=== PATIENT | female | born 1940 | race Caucasian/White ===

== ENCOUNTER 2018-07-24 15:22 | Emergency (ER) | payer OTHER ==
--- OUTSIDE RECORDS SUMMARY | 2018-07-24 15:25 | XMS REPORT | Clinical Summary ---
:1940 Author Organization [facility] Address [address] [place] [address] Care Team Providers Name Role Phone Hu Hansen MD Primary Care Provider Allergies Active Allergy Reactions Severity Noted Date Comments Adhesive Tape-Silicones Rash High 09/21/2016 Bacitracin Zinc-Polymyxin B Itching Medium 09/21/2016 Tetracyclines Medications Medication Sig Dispensed Refills Start End Date Status Date traMADol (ULTRAM) 50 mg Take 1 mg by 0 Active tablet mouth 2 7 (two) times a day. escitalopram (LEXAPRO) Take 10 mg 0 Active 10 MG tablet by mouth 6 daily. aspirin (ECOTRIN) 81 MG Take 81 mg 0 Active enteric coated tablet by mouth daily. cholecalciferol, vitamin Take 2,000 0 Active D3, (VITAMIN D3) 2,000 Units by unit capsule capsule mouth daily. zolpidem (AMBIEN) 10 mg Take 10 mg 0 Active tablet by mouth nightly as needed for sleep. nitroglycerin Place 1 100 tablet 3 Active (NITROSTAT) 0.4 MG SL tablet (0.4 7 tablet mg total) under the tongue every 5 (five) minutes as needed for chest pain. hydroCHLOROthiazide TAKE ONE 90 tablet 2 Active (HYDRODIURIL) 25 MG TABLET BY 8 tablet MOUTH DAILY ezetimibe (ZETIA) 10 mg TAKE ONE 90 tablet 2 Active tablet TABLET BY 8 MOUTH DAILY ezetimibe (ZETIA) 10 mg Take 1 90 tablet 3 Active tablet tablet (10 8 mg total) by mouth daily. hydroCHLOROthiazide Take 1 90 tablet 3 Active (HYDRODIURIL) 25 MG tablet (25 8 tablet mg total) by mouth daily. amlodipine-benazepril TAKE ONE 90 capsule 2 Active (LOTREL) 10-40 mg per CAPSULE BY 8 capsuleIndications: MOUTH DAILY Essential hypertension fluvastatin (LESCOL) 20 TAKE ONE 90 capsule 5 Active MG capsule CAPSULE BY 8 MOUTH AT BEDTIME ezetimibe (ZETIA) 10 mg Take 1 90 tablet 3 08/14/19 Discontinued tablet tablet (10 7 18 mg total) by mouth daily. hydroCHLOROthiazide Take 1 90 tablet 3 08/14/19 Discontinued (HYDRODIURIL) 25 MG tablet (25 7 18 tablet mg total) by mouth daily. fluvastatin (LESCOL) 20 Take 1 90 capsule 3 08/16/19 MG capsuleIndications: capsule (20 7 18 Hyperlipidemia, mg total) by unspecified mouth hyperlipidemia type nightly. clopidogrel (PLAVIX) 75 Take 1 90 tablet 3 10/21/19 mg tablet tablet (75 7 18 mg total) by mouth daily. amlodipine-benazepril Take 1 90 capsule 3 03/26/20 Discontinued (LOTREL) 10-40 mg per capsule by 7 18 capsuleIndications: mouth daily. Essential hypertension fluvastatin (LESCOL) 20 Take 1 30 capsule 6 04/02/20 Discontinued MG capsule capsule (20 8 18 mg total) by mouth nightly. Active Problems Problem Noted Date CAD in [place] artery 11/22/2016 Stented coronary artery 11/22/2016 CAD (coronary artery disease) 09/21/2016 SOB (shortness of breath) 09/15/2016 Coronary artery disease involving [place] coronary artery of [place] heart 09/15 with angina pectoris Coronary artery disease involving [place] heart without angina pectoris 2016 Hyperlipidemia 08/16/2016 Encounters Date Type Specialty Care Team Description 04/02/2018 Refill Cardiology Lc Silvestre MD Med Refill 03/26/2018 Refill Cardiology Lc Silvestre MD Med Refill 11/21/2017 Office Visit Cardiology Lc Silvestre MD CAD in [place] artery (Primary Dx); Stented coronary artery 10/23/2017 Refill Cardiology Fely Blackwell MA Med Refill 08/14/2017 Refill Cardiology Lc Silvestre MD Med Refill 08/14/2017 Refill Cardiology Lc Silvestre MD Med Refill after 07/23/2017 Family History Medical History Relation Name Comments Heart attack Brother Heart disease Father Hyperlipidemia Father Hypertension Father Heart disease Mother Hyperlipidemia Mother Hypertension Mother Relation Name Status Comments Brother Father Mother Social History Tobacco Use Types Packs/Day Years Used Date Never Smoker Smokeless Tobacco: Never Used Tobacco Cessation: Counseling Given: No Alcohol Use Drinks/Week oz/Week Comments No Sex Assigned at Date Recorded Not on file Job Start Date Occupation Industry Not on file Not on file Not on file Travel History Travel Start Travel End No recent travel history available. Last Filed Vital Signs Vital Sign Reading Time Taken Blood Pressure 130/60 11/21/2017 2:19 PM CDT Pulse 63 11/21/2017 2:19 PM CDT Temperature - - Respiratory Rate - - Oxygen Saturation - - Inhaled Oxygen Concentration - - Weight 82.1 kg (181 lb) 11/21/2017 2:19 PM CDT Height 162.6 cm (5' 4") 11/21/2017 2:19 PM CDT Body Mass Index 31.07 11/21/2017 2:19 PM CDT Plan of Treatment Date Type Specialty Care Team Description 11/20/2018 Office Visit Cardiology Lc Silvestre MD [address] [place] [address] Health Maintenance Due Date Last Done Comments SHINGLES VACCINES (1 of 2) 1990 PNEUMOCOCCAL POLYSACCHARIDE VACCINE AGE 65 AND OVER 2005 PNEUMOCOCCAL-13 2005 INFLUENZA VACCINE 02/28/2018 Implants Implanted Type Area Kit Planner Device Shelf Model / Identifier Expiration Serial / Date Lot Device Vasclr Clsr Vasoactive Intstnl Peptd 8fr Angio-Seal - [id number] Cardiovascular N/A: 08/30/2017 [id number] / Implanted: 10/19/2016 (Quantity not on file) Implants N/A / [id number] Stent Crnry Xnce Alpn Evrlms Eltng Sys 3.00mm X 18mm Otw - [id number] Coronary Stents N/A: BOB VASCULAR 10/31/2018 [id number] / Implanted: 09/21/2016 (Quantity not on file) N/A DEVICES / [id number] Stent Catheter Synergy (Otw) 3.50mm X 24mm - [id number] Coronary Stents N/A: [facility] [id number] / Implanted: 10/19/2016 (Quantity not on file) N/A INTERVENTIONAL / CARDIOLOGY Procedures Procedure Name Priority Date/Time Associated Comments Diagnosis COPY RECEIVED FROM: Routine 11/27/2017 8:28 Results for this AM CDT procedure are in the results section. NON HDL CHOLESTEROL Routine 11/27/2017 8:28 Results for this ([facility]) AM CDT procedure are in the results section. CHOL/HDLC RATIO Routine 11/27/2017 8:28 Results for this ([facility]LEX [facility]) AM CDT procedure are in the results section. LDL-CHOLESTEROL Routine 11/27/2017 8:28 Results for this ([facility]LEX [facility]) AM CDT procedure are in the results section. TRIGLYCERIDES Routine 11/27/2017 8:28 Results for this AM CDT procedure are in the results section. HDL CHOLESTEROL Routine 11/27/2017 8:28 Results for this AM CDT procedure are in the results section. CHOLESTEROL Routine 11/27/2017 8:28 Results for this AM CDT procedure are in the results section. COPY(IES) SENT TO: Routine 11/27/2017 8:28 Results for this AM CDT procedure are in the results section. LIPID PANEL Routine 11/27/2017 8:28 CAD in [place] Results for this AM CDT artery procedure are in the results section. after 07/23/2017 Results NON HDL CHOLESTEROL ([facility]) (11/27/2017 8:28 AM CDT) Non-HDL cholesterol 115 <130 mg/dL (calc) [facility] Comment: [place] For patients with diabetes plus 1 major ASCVD risk factor, treating to a non-HDL-C goal of <100 mg/dL (LDL-C of <70 mg/dL) is considered a therapeutic option. Narrative Performed At FASTING:YES [facility] FASTING: YES Resulting Agency Comment Performing Organization Information: Site ID: [id number] Name: [facility] Address: [address] [place] [phone] Director: Larissa Mello Performing Organization Address City/State/Zipcode Phone Number [employer] [address] [address] CHOL/HDLC RATIO ([facility]LEX [facility]) (11/27/2017 8:28 AM CDT) Cholesterol/HDL ratio 4.2 <5.0 (calc) [facility] [place] Narrative Performed At FASTING:YES [facility] FASTING: YES Resulting Agency Comment Performing Organization Information: Site ID: [id number] Name: [facility] Address: [address] [place] [phone] Director: Larissa Mello Performing Organization Address City[facility] Phone [place] [address] COPY RECEIVED FROM: (11/27/2017 8:28 AM CDT) Copy received from: [facility] Comment: [address] [facility] [address] [place] [address] Narrative Performed At FASTING:YES [facility] FASTING: YES Performing Organization Address [facility] Phone Number [facility] LDL-CHOLESTEROL ([facility]LEX [facility]) (11/27/2017 8:28 AM CDT) LDL cholesterol 88 mg/dL (calc) [facility] calculated Comment: [place] Reference range: <100 Desirable range <100 mg/dL for primary prevention; <70 mg/dL for patients with CHD or diabetic patients with > or=2 CHD risk factors. LDL-C is now calculated using the Lalit-Jose calculation, which is a validated novel method providing better accuracy than the Friedewald equation in the estimation of LDL-C. Lalit ELLER et al. JOE. 2013;310(19): 8973-5791 (http://education.icomasoft.MomentFeed/faq/DQD884) Narrative Performed At FASTING:YES [facility] FASTING: YES Resulting Agency Comment Performing Organization Information: Site ID: [id number] Name: [facility] Address: [address] [place] [phone] Director: Larissa Mello Performing Organization Address [facility] Phone Number [employer] [place] [phone] COPY(IES) SENT TO: (11/27/2017 8:28 AM CDT) Copies/mL [facility] Comment: GUCCI GARCIA [id number] [facility] [address] [place] [address] Narrative Performed At FASTING:YES [facility] FASTING: YES Performing Organization Address [facility] Phone Number [facility] Triglycerides (11/27/2017 8:28 AM CDT) Triglycerides 170 (H) <150 mg/dL [facility] [place] Narrative Performed At FASTING:YES [facility] FASTING: YES Resulting Agency Comment Performing Organization Information: Site ID: [id number] Name: [facility] Address: [address] [place] [phone] Director: Larissa Mello Performing Organization Address [facility] Phone Number [employer] [place] [address] [place] [phone] HDL cholesterol (11/27/2017 8:28 AM CDT) HDL cholesterol 36 (L) >50 mg/dL [facility] [employer] [place] Narrative Performed At FASTING:YES [facility] FASTING: YES Resulting Agency Comment Performing Organization Information: Site ID: [id number] Name: [facility] Address: [address] [place] [phone] Director: Larissa Mello Performing Organization Address [facility] Number [employer] [place] [address] [place] [phone] Cholesterol (11/27/2017 8:28 AM CDT) Cholesterol, total 151 <200 mg/dL [facility] [place] Narrative Performed At FASTING:YES [facility] FASTING: YES Resulting Agency Comment Performing Organization Information: Site ID: [id number] Name: [facility] Address: [address] [place] [phone] Director: Larissa Mello Performing Organization Address [facility] Number [employer] [place] [address] [place] [phone] Lipid panel (11/27/2017 8:28 AM CDT) Cholesterol, total 151 <200 mg/dL [facility] [place] HDL cholesterol 36 (L) >50 mg/dL [facility] [place] Triglycerides 170 (H) <150 mg/dL [facility] [place] LDL cholesterol 88 mg/dL (calc) [facility] Comment: [place] Reference range: <100 Desirable range <100 mg/dL for primary prevention; <70 mg/dL for patients with CHD or diabetic patients with > or=2 CHD risk factors. LDL-C is now calculated using the Marta calculation, which is a validated novel method providing better accuracy than the Friedewald equation in the estimation of LDL-C. Lalit ELLER et al. JOE. 2013;310(19): 0211-4644 (http://education.Netsize/faq/TBB317) Cholesterol/HDL ratio 4.2 <5.0 (calc) [facility] [place] Non-HDL cholesterol 115 <130 mg/dL [facility] Comment: (calc) [place] For patients with diabetes plus 1 major ASCVD risk factor, treating to a non-HDL-C goal of <100 mg/dL (LDL-C of <70 mg/dL) is considered a therapeutic option. Specimen Blood Narrative Performed At FASTING:YES [facility] FASTING: YES Resulting Agency Comment Performing Organization Information: Site ID: [id number] Name: [facility] Address: [address] [place] [phone] Director: Larissa Mello Performing Organization Address City/State/Zipcode Phone Number [employer] [place] [address] [place], [place] [phone] after 07/23/2017 Insurance Payer Benefit Plan / Group Subscriber ID Type Phone Address HU[employer]NA MEDICARE HU[employer]NA MEDICARE PPO/PFFS/[facility] xxxxxxxxx PPO SY Erika ([place]) [place] [address] Advance Directives Patient has advance care planning documents on file. For more information, please contact:Juan Vang[address] [place] [address]
[2018-07-24] MEDS ORDERED: HYDROCODONE/CHLORPHEN 5 ML/OSYR ONE (18:18)
--- NOTE | 2018-07-24 18:20 | RAD REPORT ---
EXAM DESCRIPTION: Claudia Arredondo (2 Views)07/24/2018 5:24 pm CLINICAL HISTORY: Cough COMPARISON: May 2017 FINDINGS: The lungs appear clear of acute infiltrate. The heart is mildly enlarged IMPRESSION: No acute abnormalities displayed
--- NOTE | 2018-07-24 18:23 | EDPHYS ---
Physician Documentation [facility] Name: Tom Cross Age: 77 yrs Sex: Female : 1940 Arrival Date: 07/24/2018 Time: 15:35 Bed 27 Private MD: Hu Hansen ED Physician Timothy Rojas HPI: 07/24 17:00 This 77 yrs old Female presents to ER via Ambulatory with complaints of Flu pm1 Symptoms. 17:00 The patient or guardian reports cough, with no sputum, nasal congestion and sore pm1 throat. Onset: The symptoms/episode began/occurred 3 day(s) ago. Modifying factors: The symptoms are alleviated by nothing. the symptoms are aggravated by nothing. Associated signs and symptoms: Pertinent positives: rhinorrhea, sore throat, Pertinent negatives: chest pain, diarrhea, fever, nausea, vomiting. Severity of symptoms: in the emergency department the symptoms are unchanged. The patient has not recently seen a physician. Historical: - Allergies: 16:03 Tetracycline; aj 16:03 anti-inflammatory medications; aj 16:03 "Pain medications"; aj - Home Meds: 16:03 aspirin 81 mg Oral TbEC 1 tab once daily [Active]; Zetia 10 mg Oral tab 1 tab once aj daily [Active]; zolpidem 10 mg Oral tab 1 tab once daily [Active]; amlodipine-benazepril 10-40 mg oral cap 1 cap once daily [Active]; hydrochlorothiazide 25 mg Oral tab 1 tab once daily [Active]; fluvastatin 20 mg oral cap 1 cap once daily [Active]; tramadol 50 mg Oral tab [Active]; Lexapro 20 mg Oral tab 1 tab once daily [Active]; - PMHx: 16:03 Hypertension; Hyperlipidemia; CAD; aj - PSHx: 16:03 Cholecystectomy; Hysterectomy; Knee surgery; aj - Immunization history:: Adult Immunizations up to date. - Social history:: Smoking status: Patient/guardian denies using tobacco. - Ebola Screening: : Patient negative for fever greater than or equal to 101.5 degrees Fahrenheit, and additional compatible Ebola Virus Disease symptoms Patient denies exposure to infectious person Patient denies travel to an Ebola-affected area in the 21 days before illness onset No symptoms or risks identified at this time. ROS: 17:00 Constitutional: Negative for fever, chills, and weight loss, Eyes: Negative for injury, pm1 pain, redness, and discharge, Neck: Negative for injury, pain, and swelling. 17:00 Cardiovascular: Negative for chest pain, palpitations, and edema, Abdomen/GI: Negative for abdominal pain, nausea, vomiting, diarrhea, and constipation. 17:00 Back: Negative for injury and pain, : Negative for injury, bleeding, discharge, and swelling, MS/Extremity: Negative for injury and deformity, Skin: Negative for injury, rash, and discoloration, Neuro: Negative for headache, weakness, numbness, tingling, and seizure. 17:00 ENT: Positive for rhinorrhea, sinus congestion, sore throat, Negative for ear pain, difficulty swallowing, difficulty handling secretions, hoarseness. 17:00 Respiratory: Positive for cough, Negative for shortness of breath, sputum production, wheezing. Exam: 17:00 Constitutional: This is a well developed, well nourished patient who is awake, alert, pm1 and in no acute distress. Head/Face: Normocephalic, atraumatic. Eyes: Pupils equal round and reactive to light, extra-ocular motions intact. Lids and lashes normal. Conjunctiva and sclera are non-icteric and not injected. Cornea within normal limits. Periorbital areas with no swelling, redness, or edema. ENT: Nares patent. No nasal discharge, no septal abnormalities noted. Tympanic membranes are normal and external auditory canals are clear. Oropharynx with no redness, swelling, or masses, exudates, or evidence of obstruction, uvula midline. Mucous membranes moist. Neck: Trachea midline, no thyromegaly or masses palpated, and no cervical lymphadenopathy. Supple, full range of motion without nuchal rigidity, or vertebral point tenderness. No Meningismus. Chest/axilla: Normal chest wall appearance and motion. Nontender with no deformity. No lesions are appreciated. Cardiovascular: Regular rate and rhythm with a normal S1 and S2. No gallops, murmurs, or rubs. Normal PMI, no JVD. No pulse deficits. Respiratory: Lungs have equal breath sounds bilaterally, clear to auscultation and percussion. No rales, rhonchi or wheezes noted. No increased work of breathing, no retractions or nasal flaring. Abdomen/GI: Soft, non-tender, with normal bowel sounds. No distension or tympany. No guarding or rebound. No evidence of tenderness throughout. Back: No spinal tenderness. No costovertebral tenderness. Full range of motion. Skin: Warm, dry with normal turgor. Normal color with no rashes, no lesions, and no evidence of cellulitis. MS/ Extremity: Pulses equal, no cyanosis. Neurovascular intact. Full, normal range of motion. 17:00 Neuro: Orientation: is normal, Motor: is normal, moves all fours, Gait: is steady, at a normal pace, without difficulty. Vital Signs: 16:03 BP 136 / 67; Pulse 88; Resp 18; Temp 98.7; Pulse Ox 97% on R/A; Weight 83.91 kg; Height aj 5 ft. 4 in. (162.56 cm); 16:30 BP 135 / 76; Pulse 86; Resp 18; Pulse Ox 96% on R/A; tl3 18:13 BP 146 / 80; Pulse 87; Resp 18; Pulse Ox 97% on R/A; tl3 16:03 Body Mass Index 31.75 (83.91 kg, 162.56 cm) aj MDM: 16:48 Patient medically screened. pm1 18:21 Data reviewed: vital signs. Data interpreted: Pulse oximetry: on room air is 97 %. pm1 Interpretation: normal. Counseling: I had a detailed discussion with the patient and/or guardian regarding: the historical points, exam findings, and any diagnostic results supporting the discharge/admit diagnosis, lab results, radiology results, the need for outpatient follow up, to return to the emergency department if symptoms worsen or persist or if there are any questions or concerns that arise at home. 07/24 16:04 Order name: Strep; Complete Time: 16:55 07/24 16:04 Order name: Flu; Complete Time: 16:55 07/24 16:40 Order name: Throat Culture EDMI 07/24 17:08 Order name: Chest Pa And Lat (2 Views) XRAY; Complete Time: 18:21 pm1 Administered Medications: 18:10 Drug: Tussionex Pennkinetic ER 5 ml Route: PO; tl3 19:01 Follow up: Response: Marked relief of symptoms rv Disposition: 07/24/18 18:23 Discharged to Home. Impression: Acute upper respiratory infection, unspecified. - Condition is Stable. - Discharge Instructions: Upper Respiratory Infection, Adult, Viral Respiratory Infection. - Prescriptions for Guaifenesin AC 10- 100 mg/5 mL Oral Liquid - take 10 milliliter by ORAL route every 4 hours As needed; 240 milliliter. - Medication Reconciliation Form, Thank You Letter, Antibiotic Education, Prescription Opioid Use form. - Follow up: Emergency Department; When: As needed; Reason: Worsening of condition. Follow up: Private Physician; When: 2 - 3 days; Reason: Recheck today's complaints, Continuance of care, Re-evaluation by your physician. - Problem is new. - Symptoms have improved. Addendum: 07/28/2018 15:23 Co-signature as Attending Physician, Timothy Rojas MD. m a2 Signatures: Dispatcher [employer] EDMS Zoey Drew, RN RN aj Benny Melendrez NP RESEARCH & ANALYTICS MANAGER pm1 Timothy Rojas MD MD ma2 Soco Garcia RN RN tl3 Pablo Matt RN RN rv Corrections: (The following items were deleted from the chart) 07/24 19:01 18:23 07/24/2018 18:23 Discharged to Home. Impression: Acute upper respiratory rv infection, unspecified. Condition is Stable. Forms are Medication Reconciliation Form, Thank You Letter, Antibiotic Education, Prescription Opioid Use. Follow up: Emergency Department; When: As needed; Reason: Worsening of condition. Follow up: Private Physician; When: 2 - 3 days; Reason: Recheck today's complaints, Continuance of care, Re-evaluation by your physician. Problem is new. Symptoms have improved. pm1
--- NOTE | 2018-07-24 18:23 | ER ---
Nurse's Notes [facility] Name: Tom Cross Age: 77 yrs Sex: Female : 1940 Arrival Date: 07/24/2018 Time: 15:35 Bed 27 Private MD: Hu Hansen Diagnosis: Acute upper respiratory infection, unspecified Presentation: 07/24 15:58 Presenting complaint: Patient states: Cough, congestion, sore throat since yesterday. aj Transition of care: patient was not received from another setting of care. Onset of symptoms was July 23, 2018. Risk Assessment: Do you want to hurt yourself or someone else? Patient reports no desire to harm self or others. Initial Sepsis Screen: Does the patient meet any 2 criteria? No. Patient's initial sepsis screen is negative. Does the patient have a suspected source of infection? No. Patient's initial sepsis screen is negative. Care prior to arrival: None. 15:58 Method Of Arrival: Ambulatory 15:58 Acuity: KINGSLEY 4 aj Triage Assessment: 16:03 General: Appears in no apparent distress. comfortable, Behavior is calm, cooperative, aj appropriate for age. Pain: Denies pain. EENT: Reports nasal congestion nasal discharge pain when swallowing. Neuro: Level of Consciousness is awake, alert, obeys commands, Oriented to person, place, time, situation, Appropriate for age. Respiratory: Reports cough that is Airway is patent Respiratory effort is even, unlabored, Respiratory pattern is regular, symmetrical. Derm: Skin is intact, is healthy with good turgor, Skin is pink, warm \\T\\ dry. normal. Historical: - Allergies: 16:03 Tetracycline; aj 16:03 anti-inflammatory medications; aj 16:03 "Pain medications"; aj - Home Meds: 16:03 aspirin 81 mg Oral TbEC 1 tab once daily [Active]; Zetia 10 mg Oral tab 1 tab once aj daily [Active]; zolpidem 10 mg Oral tab 1 tab once daily [Active]; amlodipine-benazepril 10-40 mg oral cap 1 cap once daily [Active]; hydrochlorothiazide 25 mg Oral tab 1 tab once daily [Active]; fluvastatin 20 mg oral cap 1 cap once daily [Active]; tramadol 50 mg Oral tab [Active]; Lexapro 20 mg Oral tab 1 tab once daily [Active]; - PMHx: 16:03 Hypertension; Hyperlipidemia; CAD; aj - PSHx: 16:03 Cholecystectomy; Hysterectomy; Knee surgery; aj - Immunization history:: Adult Immunizations up to date. - Social history:: Smoking status: Patient/guardian denies using tobacco. - Ebola Screening: : Patient negative for fever greater than or equal to 101.5 degrees Fahrenheit, and additional compatible Ebola Virus Disease symptoms Patient denies exposure to infectious person Patient denies travel to an Ebola-affected area in the 21 days before illness onset No symptoms or risks identified at this time. Screenin:30 Abuse screen: Denies threats or abuse. Nutritional screening: No deficits noted. tl3 Tuberculosis screening: No symptoms or risk factors identified. Fall Risk None identified. Assessment: 16:30 General: Appears uncomfortable, well groomed, well developed, well nourished, Behavior tl3 is calm, cooperative, appropriate for age. Pain: Complains of pain in sore throat. Neuro: Level of Consciousness is awake, alert, obeys commands. Cardiovascular: Patient's skin is warm and dry. Respiratory: Airway is patent Respiratory effort is even, unlabored, Respiratory pattern is regular, symmetrical, Breath sounds are coarse bilaterally. GI: No deficits noted. No signs and/or symptoms were reported involving the gastrointestinal system. : No deficits noted. No signs and/or symptoms were reported regarding the genitourinary system. EENT: Throat is reddened. 18:13 Reassessment: No changes from previously documented assessment. Patient and/or family tl3 updated on plan of care and expected duration. Pain level reassessed. Patient is alert, oriented x 3, equal unlabored respirations, skin warm/dry/pink. Vital Signs: 16:03 BP 136 / 67; Pulse 88; Resp 18; Temp 98.7; Pulse Ox 97% on R/A; Weight 83.91 kg; Height aj 5 ft. 4 in. (162.56 cm); 16:30 BP 135 / 76; Pulse 86; Resp 18; Pulse Ox 96% on R/A; tl3 18:13 BP 146 / 80; Pulse 87; Resp 18; Pulse Ox 97% on R/A; tl3 16:03 Body Mass Index 31.75 (83.91 kg, 162.56 cm) ED Course: 15:35 Patient arrived in ED. rg4 15:35 Hu Hansen MD is Private Physician. rg4 15:59 Triage completed. aj 16:03 Arm band placed on left wrist. Patient placed in waiting room, Patient notified of wait aj time. 16:30 Patient has correct armband on for positive identification. Bed in low position. Call tl3 light in reach. Adult w/ patient. Pulse ox on. NIBP on. 16:30 No provider procedures requiring assistance completed. Patient did not have IV access tl3 during this emergency room visit. 16:47 Benny Melendrez, MALCOLM is PHCP. pm1 16:47 Timothy Rojas MD is Attending Physician. pm1 17:05 Soco Garcia, RN is Primary Nurse. tl3 17:21 X-ray completed. Patient tolerated procedure well. az 17:21 Chest Pa And Lat (2 Views) XRAY In Process Unspecified. EDMS Administered Medications: 18:10 Drug: Tussionex Pennkinetic ER 5 ml Route: PO; tl3 19:01 Follow up: Response: Marked relief of symptoms rv Outcome: 18:23 Discharge ordered by MD. pm1 18:55 Discharged to home ambulatory. rv 18:55 Condition: good 18:55 Discharge instructions given to patient, family, Instructed on discharge instructions, follow up and referral plans. Demonstrated understanding of instructions, follow-up care. 19:00 Instructed on medication usage, Demonstrated understanding of medications, rv Prescriptions given X 1. 19:01 Patient left the ED. rv Signatures: Dispatcher [employer] EDMS Zoey Drew RN RN aj Marinas, Patrick, NP [employer] pm1 Lala Del Rosario rg4 Soco Garcia, PATRICK RN tl3 Pablo Matt RN RN rv Rocio Simons az
== END 2018-07-24 19:01 | disposition home or self-care (01) ==
LOC: ER 15:22
DX: J06.9 Acute upper respiratory infection, unspecified (principal); I10 Essential (primary) hypertension; E78.5 Hyperlipidemia, unspecified; I25.10 Atherosclerotic heart disease of native coronary artery without angina pectoris; Z79.82 Long term (current) use of aspirin; Z88.1 Allergy status to other antibiotic agents; Z88.6 Allergy status to analgesic agent
CPT/HCPCS: 71046; 87070; 87081; 87804; 99284

== ENCOUNTER 2024-05-24 06:18 | Day surgery (SDC) | payer OTHER ==
[2024-05-21 09:30] LABS: Absolute Basophils 0.1 K/uL (0-0.5); Absolute Eosinophils 0.3 K/uL (0-0.5); Absolute Lymphocytes (CBC) 1.6 K/uL (0.7-4.9); Absolute Monocytes 0.6 K/uL (0.1-1.3); Absolute Neutrophil 2.7 K/uL (1.8-8.0); Basophils % 1.6 % (0-1.3); Eosinophils % 6.2 % (0-4.4); Hematocrit 43.9 % (36.0-45.0); Lymphocytes % 30.2 % (15.3-44.8); MCHC 34.3 g/dL (32.0-36.0); MCV 90.3 fL (80-100); Monocytes % 11.6 % (3.3-12.3); Neutrophils % 50.4 % (41.7-73.7); Nucleated Red Blood Cells % 0.1 % (0-0); Platelets 216 thou/uL (152-406); RBC Red Blood Cell Count 4.86 M/uL (3.86-4.86); Red Cell Distribution Width 13.6 % (12.1-15.2)
[2024-05-21 09:51] LABS: Anion Gap 7.6 mEq/L (5.0-15.0); Potassium 3.6 mEq/L (3.5-5.1)
--- NOTE | 2024-05-21 12:48 | EKG ---
Test Date: 2024-05-21 Test Time: 09:15:26 [place]: CARRIE MEASUREMENT RESULTS: Intervals: Rate: 68 ID: [id number] QRSD: 86 QT: 430 QTc: 457 [place]: P: 59 ID: [id number] QRS: 45 T: 78 INTERPRETIVE STATEMENTS: Sinus rhythm with 1st degree AV block Low voltage QRS Borderline ECG Compared to ECG 03/08/2007 05:38:58 Low QRS voltage now present Sinus bradycardia no longer present Electronically Signed On 05-21-24 12:47:43 CDT by Dereje Ordaz
[2024-05-24] MEDS: OXYMETAZOLINE HCL 0.05% 15ML NAS ONE (07:10)
[2024-05-24] MEDS: Ringers Lactate 1,000 ML IV ONE (07:47)
[2024-05-24] MEDS ORDERED: LIDOCAINE JELLY 2% 5 ML SYRINGE TOP ONE (08:19)
[2024-05-24] MEDS ORDERED: propofoL 200 MG/20 ML VIAL IV ONE (08:19)
--- NOTE | 2024-05-24 09:15 | P.OP ---
Date of Service: 05/24/24 Surgeon: Dr. Yanelis Nieto Retail Shift Supervisor: None Procedure: Evaluation of sleep disordered breathing by examination of upper airway using an endoscope; CPT: 39484 Preoperative diagnosis: Moderate or severe obstructive sleep apnea with positive airway pressure intolerance. BMI between 32.0 and 32.9 Postoperative diagnosis: Moderate or severe sleep apnea with positive pressure airway intolerance. Anesthesia: IV sedation Estimated blood loss: None Complications: [None] Brief clinical history: This is a 83-year-old patient with a history of moderate to severe symptomatic obstructive sleep apnea who is intolerant and unable to achieve benefit with positive pressure therapy. They present today for drug- induced sleep endoscopy to better characterize the location and pattern of obstruction and to predict appropriate medical and/or surgical options moving forward Procedure findings: There was no evidence of complete concentric palatal obstruction and they appear to be a candidate anatomically for hypoglossal nerve stimulation therapy. Description of procedure: The patient was brought to the endoscopy suite and was administered anesthesia via standard drug-induced sleep endoscopy protocol. The patient was administered propofol while under monitoring including oxygen concentration, CO2, blood pressure, and pulse under conditions felt to mimic sleep. The patient was nonresponsive to verbal commands but maintained spontaneous respiration. Patient was noted to have observed apnea and snoring consistent with diagnosis of obstructive sleep apnea. Under these conditions, the flexible endoscope was inserted into both sides of the nose and advanced to the nasopharynx, and oral pharynx with observation of the larynx. The patient's left nasal cavity was unremarkable with no evidence of infection, polyps, or masses. The nasopharynx was unremarkable with no significant adenoid tissue. 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 There was significant anterior posterior collapse at the level of the soft palate but no evidence of complete concentric palatal obstruction. With advancement of the scope there was mild collapse of the base of tongue with moderate lateral hypopharyngeal collapse. The patient's oxygen slowly decreased with obstructive events to 87 at which time the scope was withdrawn and oxygen was administered via [id number]. The patient's oxygen catrachito was 82% with expected recovery with oxygenation and ventilation. At the conclusion of the exam, the scope was withdrawn. There was no evidence of any injury to the nasal mucosa and no evidence of active epistaxis. The patient was monitored with spontaneous ventilation until the patient's level of alertness increased and they responded to verbal commands and demonstrated active and intact control of their airway. The patient was then transferred to appropriate recovery prior to discharge. In summary, there was no evidence of complete concentric palatal obstruction and they appeared to be a candidate anatomically for hypoglossal nerve stimulation. I was present for and personally performed the entire procedure.
[2024-05-24 09:44] VITALS: BP 123/67; TEMP 97.2; O2SAT 95
== END 2024-05-24 09:52 | disposition home or self-care (01) ==
LOC: OR 06:18
PROVIDERS: ATTEND Otolaryngology
PROC: 0CJY8ZZ Inspection of Mouth and Throat, Via Natural or Artificial Opening Endoscopic (ICD-10-PCS; principal; 2024-05-24 07:45)
DX: G47.33 Obstructive sleep apnea (adult) (pediatric) (principal); Z68.32 Body mass index [BMI] 32.0-32.9, adult
CPT/HCPCS: 93005; 85025; 80048; 36415; 42975; J2704; J7120